=== PATIENT | male | born 1960 | race Caucasian/White ===

== ENCOUNTER 2019-12-21 07:26 | Outpatient (CLI) | payer OTHER, SELFPAY ==
--- NOTE | ~2019-12-21 | NM_ITS ---
EXAMINATION: NM marek stress w perfusion DATE: 12/21/2019 10:47 INDICATION: Chest pain. Abnormal EKG. TECHNIQUE: Rest images were obtained following intravenous administration of 10.2 mCi Tc99m tetrofosm in (Myoview). The patient was infused intravenously with Lexiscan (Regadenoson). Then, 30.33 mCi Tc99 m tetrofosmin (Myoview) was administered intravenously, and stress images were obtained. Data was rec onstructed into short axis and horizontal and vertical long axis SPECT images. Gated SPECT images wer e also obtained. COMPARISON: None. FINDINGS: There is no definite reversible or fixed perfusion abnormality to suggest ischemia or infar ction. There is normal left ventricular chamber size, wall motion and ejection fraction. Left ventr icular ejection fraction measures 69%. IMPRESSION: 1. Normal myocardial perfusion at rest and during stress. 2. Left ventricular ejection fraction measuring 69%. Reviewed, dictated and finalized at location A.
--- NOTE | 2019-12-21 07:49 | EST_ITS ---
Patient Info Name: Sundeep Gottlieb Age: 59 years : 1960 Gender: Male Ht: 70 in Wt: 206 lbs BSA: 2.17 m2 Exam Date: 12/21/2019 9:35 AM Exam Location: [facility] ([facility]) Stress Patient Status: Outpatient Admit Date: 12/21/2019 Staff Ordering Physician: Rojelio Neal MD Attending Provider: Rojelio Neal MD Exercise Technologist: Shanon Cabrera RDCS Exercise Physician: Maged Corey DO Exam Type: CA stress marek w NM Study Info Indications R07.89 - Other chest pain A regadenoson stress test was performed. Summary 1. 1. Negative lexiscan stress test for ischemic ST changes by ECG criteria. 2. 2. Stable hemodynamics throughout the test. 3. 3. Nuclear scan to follow and will be reported separately. Please correlate with it. 4. 4. Patient informed of the above results. Protocol: Lexiscan Stress ECG Details Stage: REST Duration (min): 0 min : 40 sec HR (bpm): 86 SBP (mmHg): 131 DBP (mmHg): 93 Stage: REST Duration (min): 9 min : 16 sec HR (bpm): 92 SBP (mmHg): 131 DBP (mmHg): 93 Stage: STAGE 1 Duration (min): 1 min : 0 sec HR (bpm): 106 SBP (mmHg): 122 DBP (mmHg): 96 Stage: RECOVERY Duration (min): 1 min : 0 sec HR (bpm): 112 SBP (mmHg): 126 DBP (mmHg): 93 Stage: RECOVERY Duration (min): 2 min : 0 sec HR (bpm): 110 SBP (mmHg): 126 DBP (mmHg): 93 Stage: RECOVERY Duration (min): 3 min : 0 sec HR (bpm): 109 SBP (mmHg): 111 DBP (mmHg): 89 Stage: RECOVERY Duration (min): 4 min : 0 sec HR (bpm): 106 SBP (mmHg): 111 DBP (mmHg): 89 Stage: RECOVERY Duration (min): 5 min : 0 sec HR (bpm): 108 SBP (mmHg): 111 DBP (mmHg): 89 Stage: RECOVERY Duration (min): 5 min : 41 sec HR (bpm): 110 SBP (mmHg): 113 DBP (mmHg): 80 Rest HR: 92 bpm Peak HR: 112 bpm Rest Sys BP: 131 mmHg Peak Sys BP: 126 mmHg Max Pred HR: 163 bpm % Max Pred HR: 69 % Target HR: 139 bpm Max RPP: 14,112 bpm*mmHg Termination Reason: Completed protocol Cardiac Symptoms: Shortness of breath Total Time: 1 min : 0 sec Rest Choudhary BP: 93 mmHg Peak Choudhary BP: 93 mmHg Total Dose: 0.4 mg Resting ECG Sinus rhythm. Stress ECG No ST changes. Arrhythmias None. Report Signatures
--- NOTE | 2019-12-21 07:49 | ECHO_ITS ---
Patient Info Name: Sundeep Gottlieb Age: 59 years : 1960 Gender: Male Ht: 70 in Wt: 206 lbs BSA: 2.17 m2 HR: 83 bpm BP: 131 / 93 mmHg Technical Quality: Good Exam Date: 12/21/2019 8:19 AM Exam Location: [facility] Pulmonary Patient Status: Outpatient Admit Date: 12/21/2019 Staff Ordering Physician: Rojelio Neal MD Public Relations Senior Associate: Shanon Cabrera RDCS Attending Provider: Rojelio Neal MD Exam Type: CA echo doppler color flow Study Info Indications R07.89 - Other chest pain Complete two-dimensional, color flow and Doppler transthoracic echocardiogram is performed. Summary 1. Left ventricular chamber dimension is normal. 2. Left ventricular systolic function is normal, estimated at 60-65%. 3. The left ventricular diastolic function is grade I diastolic dysfunction. 4. E/e' 6 is not elevated. 5. Global longitudinal strain is normal at -17.5%. 6. There is trace aortic valve regurgitation. 7. There is trace tricuspid valve regurgitation. 8. No pulmonary hypertension, estimated pulmonary arterial systolic pressure is 29 mmHg. 9. There is trace pulmonic regurgitation. Left Ventricle E/e' 6 is not elevated. Global longitudinal strain is normal at -17.5%. Left ventricular chamber dimension is normal. Left ventricular systolic function is normal, estimated at 60-65%. The left ventricular diastolic function is grade I diastolic dysfunction. Right Ventricle Right ventricular chamber dimension is normal. Right ventricular systolic function is normal. Left Atria Left atrial chamber dimension is normal. Right Atria Right atrial chamber dimension is normal. Aortic Valve The aortic valve is trileaflet. There is no aortic valve stenosis. There is trace aortic valve regurgitation. Pulmonic Valve There is trace pulmonic regurgitation. Mitral Valve There is no mitral valve stenosis. There is no mitral valve regurgitation. Tricuspid Valve There is trace tricuspid valve regurgitation. No pulmonary hypertension, estimated pulmonary arterial systolic pressure is 29 mmHg. Pericardium/Pleural There is no pericardial effusion. Inferior Vena Cava Normal inferior vena cava with >50% collapse upon inspiration consistent with normal right atrial pressure, 5 mmHg. Aorta The aortic root size at the sinus of Valsalva is normal. Left Ventricular Outflow Tract Name Value Normal LVOT 2D LVOT Diameter 2.0 cm LVOT Doppler LVOT Peak Gradient 4 mmHg LVOT Mean Gradient 2 mmHg LVOT VTI 17 cm LVOT VTI/AV VTI Ratio 0.8 LVOT Stroke Volume 53 ml LVOT CO 4.5 l/min LVOT CI 2.1 l/min/m2 Pulmonic Valve Name Value Normal RVOT Doppler RVOT Peak Gra
== END 2019-12-21 07:27 | disposition home or self-care (01) ==
PROVIDERS: PCP Internal Medicine; Visit Provider Internal Medicine
DX: R07.89 Other chest pain (principal); R94.31 Abnormal electrocardiogram [ECG] [EKG]
CPT/HCPCS: 78452; 93017; 93306; A9502; J2785

== ENCOUNTER 2020-06-10 11:19 | Outpatient (CLI) | payer OTHER, SELFPAY ==
--- NOTE | 2020-07-08 10:20 | WPDHOMESLEEP ---
Sleep Study - Home Unattended Date of Study: 06/10/20 Ordering Provider: Rojelio Neal MD Interpreting Physician: Kemi Morin MD Home Sleep Study Type: Apnea Link Air Height: 1.78 m Weight: 95.254 kg Body Mass Index: 30.1 Neck Circumference (inches): 14.5 Cotton: 6 Reason for Sleep Study hypersomnolence Sleep History Sundeep Gottlieb is a 60-year-old man with a history of fainting spells. He has had a full cardiac workup which was negative. Dr. Neal was concerned about sleep apnea and the risk of possible stroke or heart attack. The patient wakes up during the night and attributes this to drinking tea before bedtime. There is no family history of a sleep disorder. He frequently snores and is loud enough that others complain about it. He occasionally awakens at night with heartburn, belching or coughing. He does not awaken from sleep feeling short of breath. he occasionally has trouble sleeping with a cold. He does not wake up gasping for breath during the night. He really has breathing problems at night observed by others. He does not sweat excessively at night and does not notice his heart pounding or beating irregularly at night. He rarely falls asleep during the day, never involuntarily, never while driving and never during physical effort. He does not have loss of muscle tone with strong emotion. He rarely has daytime difficulties due to excessive sleepiness, works as a teacher. He does not feel paralyzed on waking or falling asleep. He rarely has vivid dreamlike scenes upon awakening or falling asleep. He is not afraid to go to sleep. He does not have nightmares. He occasional remembers his dreams. He rarely has racing thoughts. He does not feel sad or depressed. He rarely has anxiety. He rarely has muscular tension. He does not notice parts of his body jerking and he does not kick at night. He occasionally has crawling and aching feelings in his legs at night and has leg pain during the night. He does not have morning jaw pain. He never grinds his teeth during sleep. He occasionally has bothered by pain during the day, is awakened by pain at night, feels stiff in the morning with sore achy muscles. Normal bedtime is 11:30 p.m. taking 10 minutes to fall asleep, typically waking 3 times at night for 5 minutes. During this time he goes to the bathroom. Wakes in the morning at 8:30 a.m.. We can schedule is the same. He does not usually take naps. A short nap may be refreshing. He feels better in the morning compared to other times of day. Habits: never smoked tobacco. He drinks decaffeinated tea and Small amounts of caffeine otherwise. No alcohol or recreational drugs. [facility] Past Medical History Medical History (Updated 07/08/20 @ 10:52 by Kemi Morin MD) Borderline diabetes Essential hypertension History of fracture of nose Hypercholesterolemia Mixed hyperlipidemia Type 2 diabetes mellitus without complication, without long-term current use of insulin Surgical History Surgical History History of arthroscopy of both knees Family History Family History Mother Family history of atrial fibrillation Hypertension Grandparent Diabetes mellitus Father Malignant neoplasm of prostate Family history of malignant neoplasm of urinary bladder Social History Social History Smoking status: Never smoker Alcohol intake: current Substance use: never Medications Home Medications Medication Instructions Recorded Confirmed Type multivitamin 1 tablet PO DAILY 09/10/19 05/16/20 History omega-3 fatty acids 1,000 mg 1,000 mg PO BID 09/10/19 05/16/20 History capsule atorvastatin 20 mg tablet 20 mg PO DAILY #90 tablet 06/06/20 Rx hydrochlorothiazide 25 mg tablet 25 mg PO DAILY #90 tablet 06/06/20 Rx lisinopril 20 mg tablet 20
[2020-07-08 10:26] VITALS: BMI 30.1
== END 2020-06-10 11:20 | disposition home or self-care (01) ==
LOC: ANHCSM 11:19
PROVIDERS: PCP Internal Medicine; Visit Provider Internal Medicine
DX: G47.10 Hypersomnia, unspecified (principal); G47.33 Obstructive sleep apnea (adult) (pediatric); I10 Essential (primary) hypertension
CPT/HCPCS: 95806

== ENCOUNTER 2022-10-17 01:00 | Day surgery (SDC) | payer OTHER, SELFPAY ==
[2022-10-08 13:34] VITALS: BMI 28.8
--- NOTE | 2022-10-16 10:33 | PM.HPGS ---
History of Present Illness History of Present Illness Consent: Risks, benefits, and alternatives have been discussed and questions answered. Patient agrees to proceed with procedure. Chief complaint: neoplasm screening Narrative: Sundeep Gottlieb is a 62 year old male was referred for colon cancer screening. His last colonoscopy was 10 years ago. Review of Systems Review of Systems: All systems reviewed & are unremarkable except as noted in HPI and below PMFSH Past Medical History Medical History Borderline diabetes Essential hypertension History of fracture of nose Hypercholesterolemia Mixed hyperlipidemia Type 2 diabetes mellitus without complication, without long-term current use of insulin Surgical History Surgical History History of arthroscopy of both knees Family History Family History Mother Family history of atrial fibrillation Hypertension Grandparent Diabetes mellitus Father Malignant neoplasm of prostate Family history of malignant neoplasm of urinary bladder Social History Social History Smoking status: Never smoker Alcohol intake: never Alcohol use details: Occasional drinker Substance use: never Substance use type: does not use Living arrangements: with family Spiritual care concerns: No Meds Home Medications and Allergies Home Medications Medication Instructions Recorded Confirmed Type atorvastatin 20 mg tablet 20 mg PO DAILY #90 tabs 06/06/20 10/08/22 Rx hydrochlorothiazide 25 mg tablet 25 mg PO DAILY #90 tabs 06/06/20 10/08/22 Rx lisinopril 20 mg tablet 20 mg PO DAILY #90 tabs 06/06/20 10/08/22 Rx metformin 1,000 mg tablet 1,000 mg PO BID #180 tabs 06/06/20 10/08/22 Rx testosterone cypionate 200 mg/mL 400 mg IM [id number] 10/08/22 10/08/22 History intramuscular oil Allergies Allergy/AdvReac Type Severity Reaction Status Date / Time niacin AdvReac Mild NAUSEA Verified 10/17/22 07:23 Exam Const: General: alert Orientation/consciousness: patient oriented x3 Resp: Auscultation: clear to auscultation bilaterally Cardio: Rate: regular rate Rhythm: regular rhythm GI: GI Palp: Yes Soft to palpation and No Tenderness to palpation present (GI) Neuro: General: patient oriented x3 Assessment and Plan Assessment and plan (1) Colon cancer screening: Code(s): Z12.11 - Encounter for screening for malignant neoplasm of colon Status: Acute Assessment and Plan: Colonoscopy with possible biopsy or polypectomy or cautery or injection of substances.
[2022-10-17 07:25] VITALS: BP 127/97; PULSE 104; RESP 18; TEMP 36.4; O2SAT 99; BMI 28.5
[2022-10-17] MEDS: LACTATED RINGERS 1,000 ML 150 ML IV CONT (07:29)
[2022-10-17 07:45] LABS: Glucose Point of Care 105 mg/dl (65-105)
--- NOTE | 2022-10-17 08:18 | WPDANESEPPF ---
Anes - Initial Pre Proc Eval Procedure: Operation Date: 10/17/22 08:30 Proposed Procedures p Screening Colonoscopy - Gal White MD Date/Time: 10/17/22 08:18 Surgeon: Gal White MD Pre Op Diagnosis: neoplasm screening Patient Data Age: 62 Gender: M Height: 1.78 m Weight: 90.3 kg Last Vital Signs Temp 97.6 F 10/17/22 07:25 Pulse 104 H 10/17/22 07:25 Resp 18 10/17/22 07:25 BP 127/97 H 10/17/22 07:25 Pulse Ox 99 10/17/22 07:25 O2 Del Method Room Air 10/17/22 07:25 Allergies Allergy/AdvReac Type Severity Reaction Status Date / Time niacin AdvReac Mild NAUSEA Verified 10/17/22 07:23 Home Medications Medication Instructions Recorded Confirmed Type atorvastatin 20 mg tablet 20 mg PO DAILY #90 tabs 06/06/20 10/08/22 Rx hydrochlorothiazide 25 mg tablet 25 mg PO DAILY #90 tabs 06/06/20 10/08/22 Rx lisinopril 20 mg tablet 20 mg PO DAILY #90 tabs 06/06/20 10/08/22 Rx metformin 1,000 mg tablet 1,000 mg PO BID #180 tabs 06/06/20 10/08/22 Rx testosterone cypionate 200 mg/mL 400 mg IM [id number] 10/08/22 10/08/22 History intramuscular oil Laboratory Tests 10/17/22 07:42 POC Capillary Glucose 105 mg/dl mg/dl (65-105) Patient hx anesthesia problems: none Family hx anesthesia problems: none Results Review: All pre-operative results and documents have been reviewed as part of the pre-operative evaluation. REPLACED BY [facility] Past Medical History Medical History Borderline diabetes Essential hypertension History of fracture of nose Hypercholesterolemia Mixed hyperlipidemia Type 2 diabetes mellitus without complication, without long-term current use of insulin Surgical History Surgical History History of arthroscopy of both knees Family History Family History Mother Family history of atrial fibrillation Hypertension Grandparent Diabetes mellitus Father Malignant neoplasm of prostate Family history of malignant neoplasm of urinary bladder Social History Social History Smoking status: Never smoker Alcohol intake: never Alcohol use details: Occasional drinker Substance use: never Substance use type: does not use Living arrangements: with family Spiritual care concerns: No Anes - Eval Final PreProcedure Day of Procedure 10/17/22 08:18 Patient weight: normal Heart: regular rate and rhythm Lungs: clear to auscultation Airway: Mallampati scale class II Neurological: alert and oriented Last oral intake: >/= 8 hours ASA classification: III Emergent: no Anesthetic plan: proceed Anesthesia type and monitoring: general GIVS and standard monitoring Results Review: All pre-operative results and documents have been reviewed as part of the pre-operative evaluation. Informed Consent: The patient's anesthetic plan and its attendant risks and benefits were discussed with the patient/family/POA. Questions were solicited and answers provided to the satisfaction of the patient/family/POA.
[2022-10-17 08:45] VITALS: BP 103/65; PULSE 85; RESP 21; O2SAT 95
[2022-10-17 08:55] VITALS: BP 102/71; PULSE 82; RESP 24; O2SAT 96
[2022-10-17 09:05] VITALS: BP 115/82; PULSE 81; RESP 25; O2SAT 95
== END 2022-10-17 09:08 | disposition home or self-care (01) ==
PROVIDERS: PCP Internal Medicine; Visit Provider Internal Medicine Gastroenterology
PROC: 0DJD8ZZ Inspection of Lower Intestinal Tract, Via Natural or Artificial Opening Endoscopic (ICD-10-PCS; CPT 45378; principal; 2022-10-17 08:30)
DX: Z12.11 Encounter for screening for malignant neoplasm of colon (principal); K57.30 Diverticulosis of large intestine without perforation or abscess without bleeding; I10 Essential (primary) hypertension; E78.2 Mixed hyperlipidemia; E11.9 Type 2 diabetes mellitus without complications
CPT/HCPCS: 45378; 82948; J2704; J7120